=== PATIENT | female | born 1955 | race Two or more races ===

== ENCOUNTER 2024-04-29 12:40 | Day surgery (SDC) | payer MEDICAID, SELFPAY ==
--- NOTE | 2024-04-28 19:45 | ESHP_ITS ---
RE: KAYLEIGH CARLIN : 1955 DATE OF ADMISSION: 04/29/2024 DATE OF SURGERY: 04/29/2024 HISTORY OF PRESENT ILLNESS: This patient was seen by me upon referral from the [facility]. This is a 69-year-old female who was seen for colonoscopy. The patient has never had a colonoscopy and she had a history of colon cancer in her niece, but not in the immediate family member. The patient gives history of diabetes and hypertension and cataract surgery. The patient denies rectal bleeding and FOBT was negative. PAST MEDICAL HISTORY: Arthritis. PAST SURGICAL HISTORY: None. PHYSICAL EXAMINATION: GENERAL: An elderly female who appeared to be near her age, speaking only Mongolian. VITAL SIGNS: Revealed temperature of 97.8, pulse 69, BP was 107/61. She is 5 feet 2 inches tall and weighing 144 pounds with BMI of 26.34. HEENT: Examination of the head normal. Eyes, ears, nose and throat normal. NECK: Normal. CHEST: Revealed good breath sounds. HEART: Sinus rhythm with no murmurs. ABDOMEN: Negative. No abnormality on palpation. IMPRESSION: 1. Screening for malignant neoplasm. 2. Benign hypertension. 3. Bradycardia. 4. Diabetes mellitus. COURSE OF ACTION: I advised the patient to undergo colonoscopy, which is long overdue for her age, but because of need for ruling out colon cancer, she will need it and she is agreeable. The procedure was explained to her in detail using an ring maker. The patient is willing to go through the procedure. DT: 18:58:48 TT: 19:43:00 Ref: [id number] - TID: [id number]
[2024-04-29] VITALS (10 sets, daily range): BP systolic 118–155; BP diastolic 62–79; PULSE 55–72; RESP 12–20; TEMP 36.2–36.7; O2SAT 93–100; BMI 28.1
[2024-04-29] MEDS: SODIUM CHLORIDE 0.9% 100 ML IV (14:12)
[2024-04-29] MEDS: fentaNYL CIT INJ 50 mCg/ML AMP 2ML (ASD USE ONLY) 25 MCG IV ×2 (14:13→14:21)
[2024-04-29] MEDS: MIDAZOLAM INJ 1 MG/ML VIAL 2 ML (ASD USE ONLY) 2 MG IV (14:15)
--- NOTE | 2024-04-29 14:38 | SUR.PHASEII ---
PATIENT INTO RECOVERY WITH NO ACUTE DISTRESS NOTED, V/S STABLE, NO COMPLAINTS OF PAIN OR NAUSEA AT THIS TIME, PATIENT REPOSITIONED FOR COMFORT. PATIENT ACTIVELY PASSING FLATUS. REPORT RECEIVED FROM ALEX FALCON.
== END 2024-04-29 15:15 | disposition home or self-care (01) ==
PROVIDERS: PCP Physician Assistant; Referring Provider Surgery; Visit Provider Surgery
PROC: 0DBE8ZX Excision of Large Intestine, Via Natural or Artificial Opening Endoscopic, Diagnostic (ICD-10-PCS; CPT 45380; principal; 2024-04-29 13:45)
DX: Z12.11 Encounter for screening for malignant neoplasm of colon (principal); E11.9 Type 2 diabetes mellitus without complications; I10 Essential (primary) hypertension; Z85.038 Personal history of other malignant neoplasm of large intestine; M19.90 Unspecified osteoarthritis, unspecified site
CPT/HCPCS: 45378; J2250; J3010; J7050